=== PATIENT | male | born 1955 | race Caucasian/White ===

== ENCOUNTER → 2017-04-03 | Outpatient (CLI) | payer OTHER ==
[~2017-04-03] MED LIST: ATOR-24 PO; METO25TA56 PO
--- NOTE | 2017-04-03 11:55 | DIAGNOSTIC IMAGING REPORT ---
CHEST 2 VIEWS ROUTINE CLINICAL HISTORY: Bronchitis. COMPARISON STUDY: Chest CT July 20, 2014. FINDINGS: Lung volumes are normal. No pneumothorax or pleural effusion is noted. There is no consolidation to suggest pneumonia. Pulmonary vascularity is normal. Linear left basilar opacity is suggestive of atelectasis. The appearance of the chest is unchanged. IMPRESSION: No acute cardiopulmonary findings. Electronically signed by: Jesse Marley M.D. 04/03/2017 11:54 AM Dictated Date/Time: 04/03/2017 11:52 AM
== END | disposition home or self-care (01) ==
LOC: C.RAD1850 11:25
PROVIDERS: ATTEND Family Medicine
DX: J40 Bronchitis, not specified as acute or chronic (principal)

== ENCOUNTER 2021-05-23 10:25 | Inpatient (IN) ==
[2021-05-23] MEDS ORDERED: SODIUM CHLORIDE 0.9% 1000ML 1,000 ML IV ONE (11:29)
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
[2021-05-23 11:58] LABS: Basophils # (auto) 0.04 K/uL (0-0.2); Basophils % (auto) 0.6 %; Eosinophils # (auto) 0.11 K/uL (0-0.5); Eosinophils % (auto) 1.5 %; Hematocrit (blood only) 49.5 % (42-52); Hemoglobin 18.1 g/dL (14.0-18.0); Immature Granulocytes # (auto) 0.02 K/uL (0.00-0.02); Immature Granulocytes % (auto) 0.3 %; Lymphocytes # (auto) 1.93 K/uL (1.2-3.4); Lymphocytes % (auto) 27.2 %; Mean Corpuscular Hemoglobin 30.1 pg (25-34); Mean Corpuscular Hgb Conc 36.6 g/dL (32-36); Mean Corpuscular Volume 82.2 fL (80-100); Mean Platelet Volume 10.3 fL (7.4-10.4); Monocytes # (auto) 0.49 K/uL (0.11-0.59); Monocytes % (auto) 6.9 %; Neutrophils # (auto) 4.51 K/uL (1.4-6.5); Neutrophils % (auto) 63.5 %; Platelet Count 250 K/uL (130-400); RDW Coefficient of Variation 12.8 % (11.5-14.5); RDW Standard Deviation 37.9 fL (36.4-46.3); Red Blood Count 6.02 M/uL (4.7-6.1)
[2021-05-23 11:59] LABS: Appearance Urine Clear (Clear); Bilirubin Urine Negative (Negative); Blood Urine Negative (Negative); Color Urine Yellow; Glucose Urine UA Negative (Negative); Ketones Urine Negative (Negative); Leukocyte Esterase Urine Negative (Negative); Nitrite Urine Negative (Negative); Protein Urine Negative (Negative); Specific Gravity Urine 1.008 (1.000-1.030); Urobilinogen Urine Negative (Negative); pH Urine 8.5 (4.5-7.5)
--- NOTE | 2021-05-23 12:08 | XRay Report ---
XR chest 1V portable CLINICAL HISTORY: Atypical chest pain. COMPARISON STUDY: Chest CT July 20, 2014. Chest radiograph April 03, 2017. FINDINGS: Lung volumes are normal. Lungs are clear. There is no pneumothorax or pleural effusion. The re is borderline cardiomegaly. Mediastinal contours are normal. There is no evidence for pulmonary ed jd. IMPRESSION: No acute cardiopulmonary findings. ACT 112: Negative or not required by law. Electronically signed by: Jesse Marley M.D. 05/23/2021 12:06 PM
[2021-05-23 12:11] LABS: Partial Thromboplastin Ratio 0.9; Prothrombin Time 10.7 Seconds (9.0-12.0)
[2021-05-23 12:19] LABS: Troponin I < 0.03 ng/ml (0-0.04)
[2021-05-23 12:20] LABS: Alanine Aminotransferase 22 U/L (7-52); Albumin Globulin Ratio 2.1 (0.9-2); Albumin Level 4.7 gm/dl (3.4-5.0); Alkaline Phosphatase 67 U/L (34-104); Anion Gap 8 (3-11); Aspartate Aminotransferase 17 U/L (13-39); BUN Creatinine Ratio 12.5 (10-20); Bilirubin,Total 0.9 mg/dl (0.2-1.0); Blood Urea Nitrogen 11 mg/dl (6-23); Calcium 9.4 mg/dl (8.5-10.1); Carbon Dioxide 28 mmol/L (21-32); Chloride 105 mmol/L (98-107); Est GFR (African American) 104.5 ml/min; Est GFR (Non-African American) 90.1 ml/min; Globulin 2.2 gm/dl (2.5-4.0); Glucose 108 mg/dl (70-99(Fasting)); Lipase 22 U/L (11-82); Potassium 3.7 mmol/L (3.5-5.1); Sodium 141 mmol/L (136-145); Total Protein 6.9 gm/dl (6.0-8.3)
[2021-05-23 12:45] LABS: Lyme Ab IgG w/WB Rflx Negative (Negative); Lyme Ab IgM w/WB Rflx Negative (Negative)
--- NOTE | 2021-05-23 12:48 | CT Scan Report ---
CT head/brain wo con CLINICAL HISTORY: dizziness Technique: Contiguous axial CT images of the head were acquired from the base of the skull to the abby guerita without intravenous contrast administration. Images were viewed in brain, subdural and bone [facility] ws. Automated dose lowering techniques and/or adjustment according to patient size were utilized for this exam. Comparison: Comparison is made to PET/CT 12/18/2009 Findings: The ventricles, basal cisterns, and cerebral sulci are normal. There is no acute intracranial hemorrh age or evidence of acute territorial infarction. Neither mass effect, shift of the midline structures , nor abnormal extra-axial fluid collections are shown. Imaged portions of the paranasal sinuses and mastoid air cells are clear. The orbits appear normal. There are no acute fractures of the calvaria or scalp swelling. Impression: No acute intracranial hemorrhage, no evidence of acute territorial infarction or other acute intracra nial disease process. ACT 112: Negative or not required by law. Electronically signed by: Rogelio Bell M.D. 05/23/2021 12:47 PM
--- NOTE | 2021-05-23 13:34 | History & Physical Report ---
Date of Service May 23, 2021 Assessment & Plan (1) Dizziness: Plan: Ddx includes medication-induced bradycardia, sinus bradycardia (which we will determine by holding his beta-dionna), atypical anginal pain, BPPV or other labyrinth disease, or vestibular stroke. - Hold home beta-dionna - Monitor on telemetry: If his HR picks up with no episodes of bradycardia and dizziness resolves, we have our answer - If he remains bradycardic and dizzy, will consult EP for consideration of a pacemaker - I see no need to trend further troponins. Symptoms have been ongoing for nearly 4 days and troponin is undetectable. It was undetectable 24 hours after syncopal event. OR effectively ruled out. If anginal symptoms are a concern, will need stress test. - BPPV seems less likely, but he clearly describes vertigo this morning. PT consulted for Ann-Marie-Hallpike. - Vestibular strokes seems very unlikely. Could consider MRI brain if all other testing is negative. (2) Bradycardia: Plan: HR as low as 40s over last few days. - As above (3) Essential hypertension: Plan: BP has been higher over the last few days per his , but in response to stress. - Continue home amlodipine and lisinopril. Amlodipine just recently raised, so his BP may come down well with it. (4) Hyperlipidemia: Plan: Not on meds. - PCP f/u (5) History of B-cell lymphoma: Plan: In 2009. In remission. (6) DVT prophylaxis: Plan: SCDs - Avoid heparin on chance he may need pacemaker History of Present Illness Primary Care Provider: Xiang Rao MD 65yo M w/ hx of HTN who presents with an episode of syncope, bradycardia, and ongoing dizziness and vertigo. He reports that on 05/11, he was walking uphill with his when he passed out. He had enough time to say "Whoa, whoa, whoa" and reach out to his before losing consciousness. He awoke after about 15 seconds and had no post- syncope confusion. He reports some chest pressure at the time of this event, but it resolved quickly. He reports no other associated symptoms that he can recall: no palpitations, no shortness of breath, no nausea or vomiting. He felt well and actually walked home with his after that. He madhu to his PCP, and they ordered an echo and Holter monitor, but neither has arrived or been done yet. Around 05/19, he reports increasing dizziness and just feeling unwell. During these times of dizziness, he has also felt some chest pressure ("like a book on his chest") which resolves when the dizziness goes away. He has been checking his blood pressure, and the BP cuff noted high blood pressure (160/100), but a HR in the 40s. Other checks, he has found his HR in the 60s. This morning at around 3:00am, he had an episode of vertigo. He describes it as a clear vertiginous symptom with the room spinning. He notes that it was worse when he looked to the left. However, that sensation has passed, and at the time of admission, has no further symptoms at all. He notes some mild nasal congestion. Denies fever/chills/sweats, denies nausea or vomiting, denies loss of appetite, denies changes in urination or defecation. Allergies Allergy/AdvReac Type Severity Reaction Status Date / Time No Known Drug Allergies Allergy Verified 05/23/21 11:33 Home Medications Medication Instructions Recorded Confirmed Type amlodipine 10 mg tablet 10 mg PO HS #30 tab 05/22/21 05/23/21 Rx cholecalciferol (vitamin D3) 50 100 mcg PO QAM 05/23/21 05/23/21 History mcg (2,000 unit) capsule (Vitamin D3) lisinopril 40 mg tablet 40 mg PO QAM 05/23/21 05/23/21 History metoprolol succinate 100 mg 50 mg PO HS 05/23/21 05/23/21 History tablet,extended release 24 hr Past Med/Surg History Medical History (Updated 05/23/21 @ 13:26 by Jamaal Moise MD) Hyperlipidemia Hypertension Non-Hodgkin lymphoma 2009 ([place] RADIATION[place]MO) Surgical History Broken finger REPAIR SURGICAL History of colonoscopy History of esophagogastroduodenoscopy (EGD) History of herniorrhaphy History of vascular access device A-PORT INSERTION AND REMOVAL Hx of vasectomy Family History Father Family history of diabetes mellitus Mother Ovarian cancer Breast cancer Denies family history of Colon cancer Prostate cancer Myocardial infarction Social History Smoking Status: Never smoker Second Hand Exposure: Yes ( A CHILD); Hx Alcohol Use: Yes Alcohol type: beer Alcohol Intake Frequency: 2-3 x/Week Hx Substance Use: No Preferred Language: Kosovan Communication Ability: Effective Director Executive Communications Required: No Beliefs That Will Affect Care: None marital status: Current Living Situation: Spouse current occupational status: employed 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 Feels Safe at Home: Yes Childhood Exposure to Second-Hand Smoke: Yes Dental Care, Regularly: Yes Physical Activity Frequency: 1-2 Times per Week Seatbelt Use: always Sunscreen Use: Yes Assistive Devices: Glasses Review of Systems Review of Systems: All systems reviewed & are unremarkable except as noted in HPI & below Physical Exam Constitutional: WD/WN, vitals as above Eyes: EOM intact bilaterally; no conjunctival abnormality ENMT: external ear and nose normal, oropharynx normal Neck: trachea midline, no thyromegaly normal visual inspection Respiratory: normal respiratory effort, lungs clear to auscultation no respiratory distress Cardiovascular: RRR, no murmur, no edema Gastrointestinal (Abdomen): Inspection/Auscultation: abdomen normal to inspection; abdomen not distended Musculoskeletal: no cyanosis or clubbing, extremities motor strength 5/5 Skin: no rashes, warm and dry Neurologic: moves all extremities and awake Psychiatric: Orientation: alert, oriented to person and cooperative Results & Data Results & Data ([facility]) Vital Signs (Past 12 Hours) Vital Signs Temp Pulse Pulse Resp BP BP Pulse Ox 05/23/21 11:46 71 18 96 05/23/21 10:54 66 18 166/107 H 96 05/23/21 10:33 36.8 C 74 16 173/106 H 95 Code Status & VTE Plan VTE Prophylaxis Plan VTE Prophylaxis will be ordered: Yes PG Care Time/CCT Total # of Minutes Spent Total Time Spent with Patient: Total time spent is greater than 50% in coordination of care (as documented) at patient's floor/unit and/or counseling patient: Coding Level of Care Code 92561 Initial Inpt Care Lvl 3 Diagnoses Dizziness R42 Bradycardia R00.1 Essential hypertension I10 Hyperlipidemia E78.5 History of B-cell lymphoma Z85.72 DVT prophylaxis Z29.9
[2021-05-23] MEDS ORDERED: ONDANSETRON INJ 2 MG/ML 2 ML VIAL IV PRN (15:51)
[2021-05-23] MEDS ORDERED: ACETAMINOPHEN 325 MG TAB PO PRN (15:51)
[2021-05-23] MEDS: amLODIPine BESYLATE 5 MG TAB PO SCH (20:35)
--- NOTE | 2021-05-23 22:33 | Electrocardiogram Report ---
Test Reason : Blood Pressure : / mmHG Vent. Rate : 068 BPM Atrial Rate : 068 BPM P-R Int : 168 ms QRS Dur : 146 ms QT Int : 424 ms P-R-T Axes : 039 022 017 degrees QTc Int : 450 ms Normal sinus rhythm Right bundle branch block Abnormal ECG When compared with ECG of 10-MAR-2011 08:13, T wave inversion now evident in Anterior leads Confirmed by Donell Arevalo ([id number]) on 05/23/2021 10:33:35 PM Referred By: REFERRED SELF Confirmed By:Donell Arevalo
--- NOTE | 2021-05-24 02:46 | Communication Note ---
Date of Service: May 24, 2021 Informed by patient's RN that around 0140, had a ~5 second run of what appeared to be 3rd degree AVB. He was awoken at this time and reported feeling dizzy, which spontaneously resolved thereafter. BP taken shortly thereafter at 138/92. In speaking with telemetry and reviewing his trends, does appear to be flipping in between sinus rhythm in the 60-70s and what appears to be 2nd degree AVB -- usually for just a few seconds -- since later last evening. I reviewed the patient's history and noted that a single episode of this was recorded while he was in the ER. Personally went to see the patient. Asymptomatic, feeling well, perfusing well. His H&P was reviewed and noted that he presented for dizziness. Given that he reported to RN that he felt dizzy during the aforementioned findings on telemetry, concerned this may be the precipitating etiology. Will obtain ECG and labs (BMP/Mg/Phos) and replete if indicated. Pacer pads readily available if needed and in frequent communication with his RN. As patient was reported to feeling dizzy during the aforementioned event, and with the concerns of persistent but flipping conduction events, will place cardiology consultation with [facility] [place] to aid with ?need for pacemaker Resident Activity Tracking Resident Involvement: Resident Care Provided Care Provided: Adult Hospital Medicine
[2021-05-24 03:16] LABS: Hemoglobin 16.9 g/dL (14.0-18.0); Mean Corpuscular Hemoglobin 29.8 pg (25-34); Mean Corpuscular Volume 82.9 fL (80-100); Mean Platelet Volume 10.1 fL (7.4-10.4); Platelet Count 228 K/uL (130-400); RDW Coefficient of Variation 12.7 % (11.5-14.5); RDW Standard Deviation 37.9 fL (36.4-46.3); Red Blood Count 5.67 M/uL (4.7-6.1); White Blood Count 8.75 K/uL (4.8-10.8)
[2021-05-24 03:36] LABS: BUN Creatinine Ratio 10.8 (10-20); Calcium 8.6 mg/dl (8.5-10.1); Creatinine Clr Calc Pharmacy 92.7 ml/min; Est GFR (African American) 99.5 ml/min; Est GFR (Non-African American) 85.8 ml/min; Magnesium 2.2 mg/dl (1.7-2.4); Phosphorus 3.7 mg/dl (2.5-4.9); Potassium 3.5 mmol/L (3.5-5.1)
[2021-05-24] MEDS ORDERED: POTASSIUM CHLORIDE CRTAB 20 MEQ TABCR PO STA (05:33)
[2021-05-24] MEDS: lisinopril 40 MG TAB PO SCH (08:46)
--- NOTE | 2021-05-24 10:13 | Cardiology Consultation ---
Date of Consultation May 24, 2021 Assessment & Plan (1) Second-degree heart block: (2) Bradycardia: (3) Dizziness: (4) Syncope: 1. High-degree AV block: The patient has evidence of underlying conduction disease with baseline right bundle branch block. However, the NE interval was normal at baseline. Since he has been on telemetry he has demonstrated both Mobitz 2 conduction and brief periods of complete heart block. This likely represents infra-Hisian conduction disease and in the setting of symptoms is a good indication for permanent pacing. While metoprolol may have made his symptoms more acute, this is not likely the sole etiology of his conduction disease and his conduction disease is not likely to resolve with discontinuation of metoprolol. I believe his syncope and symptoms are related to brief periods of asystole related to his heart block. I recommended a permanent pacemaker. I discussed the procedure and the attendant risks with the patient and his . Will plan on proceeding when the opportunity becomes available, tentatively Wednesday. The etiology of his heart block is likely chronic degeneration. He does not appear to have Lyme disease. As noted above I do not believe medications are responsible. There is the possibility of an infiltrative process such as amyloidosis or sarcoidosis, but with normal LV function and normal appearing heart I think this is unlikely. History of Present Illness Reason for Consultation: Dizziness, heart block Requesting Physician: [place] Attending Physician: Etienne Gee MD History of Present Illness The patient is a 65-year-old gentleman without a known history of cardiac d isease who was admitted to the hospital for symptoms of Episodic dizziness. It seems that the patient's symptoms initially started nearly 2 weeks ago when he suffered a syncopal episode. The patient was active at the time. He reports walking and having a very brief prodrome prior to losing consciousness and postural tone. He regained consciousness within a few seconds, and rested for approximately 10 minutes prior to resuming his activity. His was present for that event. He did not feel poorly afterwards but did have occasional episodes of dizziness since that time. These episodes tend to occur when he is active. They are very transient in nature. They have not resulted in any additional episodes of syncope. The patient feels that some of these episodes may be precipitated by changing positions such as rolling over in bed. Ten these episodes appear to have involved a sense of the room spinning as well. He does not have associated symptoms such as nausea or abdominal complaints. No diaphoresis. He was not described as looking pale after his episode of syncope. He has not had any sense of palpitations. He cannot recall any other episodes of syncope. Last evening on telemetry he had a brief episode of third-degree heart block. Apparently he was sleeping at that time. He did not recall any specific symptoms. Allergies Allergy/AdvReac Type Severity Reaction Status Date / Time No Known Drug Allergies Allergy Verified 05/23/21 11:33 Home Medications Medication Instructions Recorded Confirmed Type amlodipine 10 mg tablet 10 mg PO HS #30 tab 05/22/21 05/23/21 Rx cholecalciferol (vitamin D3) 50 100 mcg PO QAM 05/23/21 05/23/21 History mcg (2,000 unit) capsule (Vitamin D3) lisinopril 40 mg tablet 40 mg PO QAM 05/23/21 05/23/21 History metoprolol succinate 100 mg 50 mg PO HS 05/23/21 05/23/21 History tablet,extended release 24 hr Patient History Medical History (Updated 05/24/21 @ 10:17 by Atilio Ni MD) Hyperlipidemia Hypertension Non-Hodgkin [place] 2009 ([place]) Surgical History Broken finger REPAIR SURGICAL History of colonoscopy History of esophagogastroduodenoscopy (EGD) History of herniorrhaphy History of vascular access device A-PORT INSERTION AND REMOVAL Hx of vasectomy Family History Father Family history of diabetes mellitus Mother Ovarian cancer Breast cancer Denies family history of Colon cancer Prostate cancer Myocardial infarction Social History Smoking Status: Never smoker Second Hand Exposure: No; Hx Alcohol Use: No Hx Substance Use: No Preferred Language: Anguill[place] Communication Ability: Effective Grading Machine Feeder Required: No Beliefs That Will Affect Care: Pentecostalism marital status: Current Living Situation: Spouse Current Living Situation Comment: [facility] Foley current occupational status: employed 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 The patient did not report any recent fevers or chills. No coughing. No abdominal complaints. No lower extremity edema. He has otherwise been feeling well. Physical Exam Physical Exam: The patient is alert and oriented. Mood and affect appeared normal. He answered all questions appropriately. HEENT: Pupils are equal and reactive to light and accommodation. Extraocular movements are intact. The sclerae are anicteric. Neuro: Cranial nerves intact Neck: Patient's neck is supple. He has palpable carotid pulses bilaterally without bruits on auscultation. There is no evidence of jugular venous distent ion. The thyroid is not enlarged. Chest: Well-healed surgical scar in the left upper pectoral area. Lungs: Clear to auscultation bilaterally. He has good air movement without use of accessory muscles. No rales wheezes or rhonchi. Cardiac: Heart demonstrates an irregular rate and rhythm. Normal S1 and S2. No murmurs on examination. Pulses: The patient has palpable radial pulses bilaterally that are equal in intensity Extremities: There was no evidence of hypoperfusion. There is no cyanosis or clubbing. There is no edema. Skin: I did not appreciate any rashes on examination today. Results & Data ([facility]) Vital Signs (Past 12 Hours) Vital Signs Temp Pulse Pulse Resp BP Pulse Ox 05/24/21 07:39 73 05/24/21 05:37 36.9 C 73 16 158/96 H 94 05/24/21 03:01 37 C 58 L 18 147/80 H 94 05/24/21 01:47 37.0 C 56 L 20 138/92 95 05/23/21 23:02 36.9 C 54 L 16 152/79 H 94 05/23/21 22:22 55 L Laboratory Results Abnormal Lab Results 05/23/21 05/23/21 05/23/21 11:37 11:37 11:37 WBC 7.10 RBC 6.02 Hgb 18.1 H Hct 49.5 MCV 82.2 MCH 30.1 MCHC 36.6 H RDW Std Deviation 37.9 RDW Coeff of Alfredo 12.8 Plt Count 250 MPV 10.3 Immature Gran % (Auto) 0.3 Neut % (Auto) 63.5 Lymph % (Auto) 27.2 [place] % (Auto) 6.9 Eos % (Auto) 1.5 Baso % (Auto) 0.6 Neut # (Auto) 4.51 Lymph # (Auto) 1.93 [place] # (Auto) 0.49 Eos # (Auto) 0.11 Baso # (Auto) 0.04 Immature Gran # (Auto) 0.02 PT 10.7 INR 1.0 APTT 25.0 PTT Ratio 0.9 Sodium 141 Potassium 3.7 Chloride 105 Carbon Dioxide 28 Anion Gap 8 BUN 11 Creatinine 0.88 Est Cr Clr Drug Dosing 98.0 Est GFR ( Amer) 104.5 Est GFR (Non-Af Amer) 90.1 BUN/Creatinine Ratio 12.5 Glucose 108 H Calcium 9.4 Phosphorus Magnesium Total Bilirubin 0.9 AST 17 ALT 22 Alkaline Phosphatase 67 Troponin I < 0.03 Total Protein 6.9 Albumin 4.7 Globulin 2.2 L Albumin/Globulin Ratio 2.1 H Lipase 22 TSH Urine Color Urine Appearance Urine pH Ur Specific [place] Urine Protein Urine Glucose (UA) Urine Ketones Urine Blood Urine Nitrite Urine Bilirubin Urine Urobilinogen Ur Leukocyte Esterase Lyme Disease IgG Ab Lyme Disease IgM Ab SARS-CoV-2, RNA, NAAT 05/23/21 05/23/21 05/23/21 11:37 11:37 11:37 WBC RBC Hgb Hct MCV MCH MCHC RDW Std Deviation RDW Coeff of Alfredo Plt Count MPV Immature Gran % (Auto) Neut % (Auto) Lymph % (Auto) [place] % (Auto) Eos % (Auto) Baso % (Auto) Neut # (Auto) Lymph # (Auto) [place] # (Auto) Eos # (Auto) Baso # (Auto) Immature Gran # (Auto) PT INR APTT PTT Ratio Sodium Potassium Chloride Carbon Dioxide Anion Gap BUN Creatinine Est Cr Clr Drug Dosing Est GFR ( Amer) Est GFR (Non-Af Amer) BUN/Creatinine Ratio Glucose Calcium Phosphorus Magnesium Total Bilirubin AST ALT Alkaline Phosphatase Troponin I Total Protein Albumin Globulin Albumin/Globulin Ratio Lipase TSH 2.069 Urine Color Urine Appearance Urine pH Ur Specific [place] Urine Protein Urine Glucose (UA) Urine Ketones Urine Blood Urine Nitrite Urine Bilirubin Urine Urobilinogen Ur Leukocyte Esterase Lyme Disease IgG Ab Negative Lyme Disease IgM Ab Negative SARS-CoV-2, RNA, NAAT NEGATIVE 05/23/21 05/24/21 05/24/21 11:40 02:54 02:54 WBC 8.75 RBC 5.67 Hgb 16.9 Hct 47.0 MCV 82.9 MCH 29.8 MCHC 36.0 RDW Std Deviation 37.9 RDW Coeff of Alfredo 12.7 Plt Count 228 MPV 10.1 Immature Gran % (Auto) Neut % (Auto) Lymph % (Auto) [place] % (Auto) Eos % (Auto) Baso % (Auto) Neut # (Auto) Lymph # (Auto) [place] # (Auto) Eos # (Auto) Baso # (Auto) Immature Gran # (Auto) PT INR APTT PTT Ratio Sodium 139 Potassium 3.5 Chloride 106 Carbon Dioxide 28 Anion Gap 5 BUN 10 Creatinine 0.93 Est Cr Clr Drug Dosing 92.7 Est GFR ( Amer) 99.5 Est GFR (Non-Af Amer) 85.8 BUN/Creatinine Ratio 10.8 Glucose 104 H Calcium 8.6 Phosphorus 3.7 Magnesium 2.2 Total Bilirubin AST ALT Alkaline Phosphatase Troponin I Total Protein Albumin Globulin Albumin/Globulin Ratio Lipase TSH Urine Color Yellow Urine Appearance Clear Urine pH 8.5 H Ur Specific [place] 1.008 Urine Protein Negative Urine Glucose (UA) Negative Urine Ketones Negative Urine Blood Negative Urine Nitrite Negative Urine Bilirubin Negative Urine Urobilinogen Negative Ur Leukocyte Esterase Negative Lyme Disease IgG Ab Lyme Disease IgM Ab SARS-CoV-2, RNA, NAAT Diagnostic Findings Chest x-ray obtained the time admission not reveal acute cardiopulmonary process. Head CT did not demonstrate any acute intracranial process echocardiogram performed today revealed preserved LV systolic function without regional wall motion abnormalities. Stage I diastolic dysfunction. No significant valvular heart disease. ECG Additional Comments: EKG obtained the time admission revealed normal sinus rhythm with right bundle branch block PG Care Time/CCT Total # of Minutes Spent Total Time Spent with Patient: Total time spent is greater than 50% in coordination of care (as documented) at patient's floor/unit and/or counseling patient: Coding Level of Care Code 81714 Initial Inpt Care Lvl 3 Diagnoses Second-degree heart block I44.1 Bradycardia R00.1 Dizziness R42 Syncope R55
--- NOTE | 2021-05-24 10:35 | XCELERA ---
[id number]
--- NOTE | 2021-05-24 12:34 | Electrocardiogram Report ---
Test Reason : Blood Pressure : / mmHG Vent. Rate : 072 BPM Atrial Rate : 072 BPM P-R Int : 172 ms QRS Dur : 152 ms QT Int : 442 ms P-R-T Axes : 057 040 046 degrees QTc Int : 483 ms Normal sinus rhythm Right bundle branch block Abnormal ECG When compared with ECG of 23-MAY-2021 10:50, No significant change was found Confirmed by Atilio Ni ([id number]) on 05/24/2021 12:34:01 PM Referred By: REFERRED SELF Confirmed By:Jass Ni
--- NOTE | 2021-05-24 12:34 | Electrocardiogram Report ---
Test Reason : Blood Pressure : / mmHG Vent. Rate : 043 BPM Atrial Rate : 079 BPM P-R Int : 166 ms QRS Dur : 150 ms QT Int : 456 ms P-R-T Axes : 051 028 038 degrees QTc Int : 385 ms Sinus rhythm with 2nd degree A-V block (Mobitz II) with 2:1 A-V conduction Right bundle branch block Cannot rule out Inferior infarct , age undetermined Abnormal ECG When compared with ECG of 24-MAY-2021 01:47, (unconfirmed) Sinus rhythm is now with 2nd degree A-V block (Mobitz II) Vent. rate has decreased BY 29 BPM QT has shortened Confirmed by Atilio Ni ([id number]) on 05/24/2021 12:34:36 PM Referred By: REFERRED SELF Confirmed By:Jass Ni
--- NOTE | 2021-05-24 13:49 | Hospitalist Progress Note ---
Date of Service May 24, 2021 Assessment & Plan (1) Second-degree heart block: Plan: Second-degree heart block with normal MN observed on telemetry Cardiology consulted, syncope and symptoms are likely related to intermittent heart block with evidence of Mobitz 2 on monitor Patient has been recommended for permanent pacemaker Anticipate pacer placement on Wednesday Pacer pads to bedside, continue to monitor on telemetry. No additional vestibular work-up indicated at this time. Continue to hold beta-dionna (2) Dizziness: Plan: Initial Ddx includes medication-induced bradycardia, sinus bradycardia (which we will determine by holding his beta-dionna), atypical anginal pain, BPPV or other labyrinth disease, or vestibular stroke. - Hold home beta-dionna Due to cardiac etiology as managed above (3) Bradycardia: Plan: HR as low as 40s over last few days. - As above (4) Essential hypertension: Plan: BP has been higher over the last few days per his , but in response to stress. - Continue home amlodipine and lisinopril. May add hydralazine as needed if needed, will currently held due to bradycardia/heart block (5) Hyperlipidemia: Plan: Not on meds. - PCP f/u (6) History of B-cell lymphoma: Plan: In 2009. In remission. (7) DVT prophylaxis: Plan: SCDs -on hold pending pacer placement Admission and Anticipated Discharge Date Admission Date: May 23, 2021 Subjective Patient seen at the bedside this morning. He reports he was awoken 2:58 AM and told that he had a slow heartbeat on the monitor, patient reports he did experience lightheadedness/dizziness at that time. Had another episode at around 5 AM. Was noted to have secondthird-degree heart block on telemetry. He reports these episodes resolved fairly quickly, and the time bedside assessment he feels normal. Denies chest pain, chest pressure, lightheadedness, dizziness, nausea, vomiting, diarrhea, syncope, presyncope, difficulty breathin g, shortness of breath, palpitations at time of bedside assessment. Overall between episodes he feels normal. No fever/chills/sweats. Has seen cardiology this morning, is anticipating pacer placement on Wednesday. Review of Systems Review of Systems: All systems reviewed & are unremarkable except as noted in Subjective Physical Exam Physical Exam: General: A&Ox3. NAD. Cooperative. HEENT: Atraumatic, normocephalic. Patient and hearing grossly intact. Pulm: CTAB A&P. -wheezes, -rales, -rhonchi. Symmetrical chest rise. No increase in work of breathing. No respiratory distress. Cardiac: RRR, -mrg. Radial pulses intact and symmetrical. Abdominal: Nontender, nondistended, soft. BS present. Results & Data Results & [facility]) Vital Signs (Past 12 Hours) Vital Signs Temp Pulse Pulse Resp BP Pulse Ox 05/24/21 07:39 73 05/24/21 05:37 36.9 C 73 16 158/96 H 94 05/24/21 03:01 37 C 58 L 18 147/80 H 94 05/24/21 01:47 37.0 C 56 L 20 138/92 95 PG Care Time/CCT Total # of Minutes Spent Total Time Spent with Patient: Total time spent is greater than 50% in coordination of care (as documented) at patient's floor/unit and/or counseling patient: Coding Level of Care Code 37230 Subseq Hosp Care Lvl 2 Diagnoses Dizziness R42 Bradycardia R00.1 Essential hypertension I10 Hyperlipidemia E78.5 History of B-cell lymphoma Z85.72 DVT prophylaxis Z29.9 Second-degree heart block I44.1
[2021-05-24] MEDS: amLODIPine BESYLATE 5 MG TAB PO SCH (20:02)
[2021-05-25 06:46] LABS: BUN Creatinine Ratio 15.4 (10-20); Blood Urea Nitrogen 14 mg/dl (6-23); Calcium 9.3 mg/dl (8.5-10.1); Carbon Dioxide 30 mmol/L (21-32); Chloride 104 mmol/L (98-107); Creatinine Clr Calc Pharmacy 94.7 ml/min; Est GFR (African American) 102.1 ml/min; Est GFR (Non-African American) 88.1 ml/min; Glucose 108 mg/dl (70-99(Fasting))
[2021-05-25] MEDS: lisinopril 40 MG TAB PO SCH (07:25)
[2021-05-25 07:27] LABS: Potassium 3.5 mmol/L (3.5-5.1)
--- NOTE | 2021-05-25 11:36 | Cardiology Progress Note ---
Date of Service May 25, 2021 Assessment & Plan (1) Second-degree heart block: (2) Bradycardia: (3) Dizziness: (4) Syncope: Plan: 1. High-degree AV block: Improved. This morning he was conducting one-to-one from the atrium to the ventricle. No additional pauses or episodes of complete heart block. Perhaps there has been some improvement with discontinuation of beta-blockade. However, I still think he has significant infra-Hisian disease and there will continue to be unreliable AV conduction. Given his symptoms and evidence of heart block we will plan on proceeding with the pacemaker tomorrow. Admission and Anticipated Discharge Date Admission Date: May 23, 2021 Subjective This morning patient claims to be feeling well. He was able ambulate to the bathroom and back without significant difficulty. He has not had any recurrent symptoms of dizziness or presyncope. Review of Systems Review of Systems: Per HPI Physical Exam Physical Exam: The patient is alert and oriented. Mood and affect appeared normal. He answered all questions appropriately. HEENT: Pupils are equal and reactive to light and accommodation. Extraocular movements are intact. The sclerae are anicteric. Neuro: Cranial nerves intact Chest: Well-healed surgical scar in the left upper pectoral area. Lungs: Clear to auscultation bilaterally. He has good air movement without use of accessory muscles. No rales wheezes or rhonchi. Cardiac: Heart demonstrates an irregular rate and rhythm. Normal S1 and S2. No murmurs on examination. Skin: I did not appreciate any rashes on examination today. Results & Data ([facility]) Vital Signs (Past 12 Hours) Vital Signs Temp Pulse Resp BP Pulse Ox 05/25/21 10:56 37.1 C 97 H 19 165/96 H 93 05/25/21 06:26 36.5 C 71 18 166/97 H 96 05/25/21 03:31 36.5 C 75 18 136/81 96 Laboratory Results Abnormal Lab Results 05/25/21 05/25/21 05:42 06:51 Sodium 140 Potassium 3.5 Chloride 104 Carbon Dioxide 30 Anion Gap TNP BUN 14 Creatinine 0.91 Est Cr Clr Drug Dosing 94.7 Est GFR ( Amer) 102.1 Est GFR (Non-Af Amer) 88.1 BUN/Creatinine Ratio 15.4 Glucose 108 H Calcium 9.3 PG Care Time/CCT Total # of Minutes Spent Total Time Spent with Patient: Total time spent is greater than 50% in coordination of care (as documented) at patient's floor/unit and/or counseling patient: Coding Level of Care Code 61138 Subseq Hosp Care Lvl 2 Diagnoses Second-degree heart block I44.1 Bradycardia R00.1 Dizziness R42 Syncope R55
--- NOTE | 2021-05-25 12:45 | Hospitalist Progress Note ---
Date of Service May 25, 2021 Assessment & Plan (1) Second-degree heart block: Plan: Second-degree heart block with normal OR observed on telemetry Cardiology consulted, syncope and symptoms are likely related to intermittent heart block with evidence of Mobitz 2 and pauses on monitor Patient has been recommended for permanent pacemaker Anticipate pacer placement on Wednesday Pacer pads to bedside, continue to monitor on telemetry. No additional vestibular work-up indicated at this time. Continue to hold beta-dionna N.p.o. at midnight (2) Dizziness: Plan: Initial Ddx includes medication-induced bradycardia, sinus bradycardia (which we will determine by holding his beta-dionna), atypical anginal pain, BPPV or other labyrinth disease, or vestibular stroke. - Hold home beta-dionna Due to cardiac etiology as managed above May resume beta-dionna once pacer in place for hypertension management (3) Bradycardia: Plan: HR as low as 40s over last few days. - As above (4) Essential hypertension: Plan: BP has been higher over the last few days per his , but in response to stress. - Continue home amlodipine and lisinopril. May add hydralazine as needed if needed, will currently held due to bradycardia/heart block (5) Hyperlipidemia: Plan: Not on meds. - PCP f/u (6) History of B-cell lymphoma: Plan: In 2009. In remission. (7) DVT prophylaxis: Plan: SCDs -on hold pending pacer placement Admission and Anticipated Discharge Date Admission Date: May 23, 2021 Subjective Seen at bedside this morning. Anticipating pacer placement tomorrow, no symptoms overnight. No third-degree block or pauses on telemetry overnight. No chest pain, chest pressure, lightheadedness, dizziness, shortness of breath, difficulty breathing at time of bedside assessment. Patient feels in his normal state of health. Review of Systems Review of Systems: All systems reviewed & are unremarkable except as noted in Subjective Physical Exam Physical Exam: General: A&Ox3. NAD. Cooperative. HEENT: Atraumatic, normocephalic. Patient and hearing grossly intact. Pulm: CTAB A&P. -wheezes, -rales, -rhonchi. Symmetrical chest rise. No increase in work of breathing. No respiratory distress. Cardiac: RRR, -mrg. Radial pulses intact and symmetrical. Abdominal: Nontender, nondistended, soft. BS present. Results & Data Results & Data ([facility]) Vital Signs (Past 12 Hours) Vital Signs Temp Pulse Resp BP Pulse Ox 05/25/21 10:56 37.1 C 97 H 19 165/96 H 93 05/25/21 06:26 36.5 C 71 18 166/97 H 96 05/25/21 03:31 36.5 C 75 18 136/81 96 PG Care Time/CCT Total # of Minutes Spent Total Time Spent with Patient: Total time spent is greater than 50% in coordination of care (as documented) at patient's floor/unit and/or counseling patient: Coding Level of Care Code 57733 Subseq Hosp Care Lvl 2 Diagnoses Second-degree heart block I44.1 Dizziness R42 Bradycardia R00.1 Essential hypertension I10 Hyperlipidemia E78.5 History of B-cell lymphoma Z85.72 DVT prophylaxis Z29.9
[2021-05-25] MEDS: amLODIPine BESYLATE 5 MG TAB PO SCH (20:40)
[2021-05-26 05:49] LABS: Basophils # (auto) 0.05 K/uL (0-0.2); Basophils % (auto) 0.6 %; Eosinophils % (auto) 3.3 %; Hematocrit (blood only) 50.1 % (42-52); Hemoglobin 17.8 g/dL (14.0-18.0); Immature Granulocytes # (auto) 0.02 K/uL (0.00-0.02); Immature Granulocytes % (auto) 0.2 %; Lymphocytes # (auto) 2.64 K/uL (1.2-3.4); Lymphocytes % (auto) 29.1 %; Mean Corpuscular Hemoglobin 29.8 pg (25-34); Mean Corpuscular Hgb Conc 35.5 g/dL (32-36); Mean Corpuscular Volume 83.8 fL (80-100); Mean Platelet Volume 10.2 fL (7.4-10.4); Monocytes # (auto) 0.68 K/uL (0.11-0.59); Monocytes % (auto) 7.5 %; Neutrophils # (auto) 5.37 K/uL (1.4-6.5); Neutrophils % (auto) 59.3 %; Platelet Count 218 K/uL (130-400); RDW Coefficient of Variation 12.8 % (11.5-14.5); RDW Standard Deviation 38.2 fL (36.4-46.3); Red Blood Count 5.98 M/uL (4.7-6.1); White Blood Count 9.06 K/uL (4.8-10.8)
[2021-05-26 06:35] LABS: BUN Creatinine Ratio 17.1 (10-20); Creatinine Clr Calc Pharmacy 113.4 ml/min; Est GFR (Non-African American) 95.7 ml/min; Potassium 3.6 mmol/L (3.5-5.1)
[2021-05-26] MEDS ORDERED: hydrALAZINE HCL 20 MG/ML VIAL IV PRN (11:17)
--- NOTE | 2021-05-26 11:17 | Hospitalist Progress Note ---
Date of Service May 26, 2021 Assessment & Plan (1) Second-degree heart block: Plan: Second-degree heart block with normal MN observed on telemetry Cardiology consulted, syncope and symptoms are likely related to intermittent heart block with evidence of Mobitz 2 and pauses on monitor Patient has been recommended for permanent pacemaker Anticipate pacer placement on Wednesday Pacer pads to bedside, continue to monitor on telemetry. No additional vestibular work-up indicated at this time. Continue to hold beta-dionna, may resume post pacer placement Lisinopril temporarily held for procedure, may resume post procedure Anticipate placer placement approximately noon today. Will observe overnight on telemetry, if doing well likely stable for discharge tomorrow Hypertensive in the morning preprocedure, no hypertensive symptoms at bedside. Both metoprolol and lisinopril have been held metoprolol for heart block and lisinopril for anesthesia interaction preprocedure. Amlodipine has been continued. Hydralazine order placed for morning, once pacer placed resume both lisinopril and metoprolol for BP control. (2) Dizziness: Plan: Initial Ddx includes medication-induced bradycardia, sinus bradycardia (which we will determine by holding his beta-dionna), atypical anginal pain, BPPV or other labyrinth disease, or vestibular stroke. - Hold home beta-dionna Due to cardiac etiology as managed above May resume beta-dionna once pacer in place for hypertension management (3) Bradycardia: Plan: HR as low as 40s over last few days. - As above (4) Essential hypertension: Plan: BP has been higher over the last few days per his , but in response to stress. - Continue home amlodipine and lisinopril. May add hydralazine as needed if needed, will currently held due to bradycardia/heart block (5) Hyperlipidemia: Plan: Not on meds. - PCP f/u (6) History of B-cell lymphoma: Plan: In 2009. In remission. (7) DVT prophylaxis: Plan: SCDs -on hold pending pacer placement Admission and Anticipated Discharge Date Admission Date: May 23, 2021 Subjective Seen at bedside this morning. No symptoms overnight. No third-degree block overnight. No chest pain, chest pressure, shortness of breath, difficulty breathing, lightheadedness, dizziness. Has been n.p.o. since midnight. Anticipate pacer placement today, scheduled for 12:00. No acute questions or concerns at time of visit. Lisinopril was temporarily held, may resume post procedure. Review of Systems Review of Systems: All systems reviewed & are unremarkable except as noted in Subjective Physical Exam Physical Exam: General: A&Ox3. NAD. Cooperative. HEENT: Atraumatic, normocephalic. Patient and hearing grossly intact. Pulm: CTAB A&P. -wheezes, -rales, -rhonchi. Symmetrical chest rise. No increase in work of breathing. No respiratory distress. Cardiac: RRR, -mrg. Radial pulses intact and symmetrical. Abdominal: Nontender, nondistended, soft. BS present. Results & Data Results & Data ([facility]) Vital Signs (Past 12 Hours) Vital Signs Temp Pulse Resp BP BP Pulse Ox 05/26/21 10:54 37.0 C 90 18 176/110 H 95 05/26/21 07:00 36.9 C 82 18 172/101 H 175/119 H 96 05/26/21 03:31 36.8 C 74 18 158/96 H 97 PG Care Time/CCT Total # of Minutes Spent Total Time Spent with Patient: Total time spent is greater than 50% in coordination of care (as documented) at patient's floor/unit and/or counseling patient: Coding Level of Care Code 29046 Subseq Hosp Care Lvl 2 Diagnoses Second-degree heart block I44.1 Dizziness R42 Bradycardia R00.1 Essential hypertension I10 Hyperlipidemia E78.5 History of B-cell lymphoma Z85.72 DVT prophylaxis Z29.9
[2021-05-26] MEDS ORDERED: BUPIVACAINE 0.25% 30 ML VIAL ONE (11:23)
[2021-05-26] MEDS ORDERED: VANCOMYCIN HCL 1000MG/20ML VIAL ONE (11:23)
[2021-05-26] MEDS ORDERED: LIDOCAINE 1% LOCAL 20 ML VIAL ONE (11:23)
[2021-05-26] MEDS ORDERED: WATER, STERILE FOR INJ 10 ML VIAL ONE (11:23)
--- NOTE | 2021-05-26 11:41 | Pre Anesthesia Assessment ---
Date of Service May 26, 2021 Pre Sedation Assessment Vital Signs Temp Pulse Resp BP BP Pulse Ox 05/26/21 11:20 59 L 15 198/103 H 97 05/26/21 10:54 37.0 C 90 18 176/110 H 95 05/26/21 07:00 36.9 C 82 18 172/101 H 175/119 H 96 05/26/21 03:31 36.8 C 74 18 158/96 H 97 05/25/21 22:37 36.9 C 81 20 162/104 H 95 05/25/21 19:26 37.4 C 90 18 167/90 H 95 05/25/21 15:40 36.9 C 103 H 18 146/94 H 94 Cardiovascular + regular rhythm Respiratory + respiratory effort normal Pre-Sedation Airway Assessment Smoking Status: Never smoker Hx Sleep Apnea: No Hx Difficult Intubation: No Short, Thick Neck: Yes Thyromental Distance: > or= 3.5 Finger Breadths Oral Cavity: + WNL Mallampati Class: III ASA: ASA3 NPO Status Date of Last Intake of Fluids: 05/25/21 Date of Last Intake of Solid Food: 05/25/21 Procedure Planning Contraindications for Sedation: none Current Medications Reviewed: Yes Notes The planned sedation has been discussed with the patient. Informed Consent was obtained. I have identified the patient, determined the appropriateness of sedation and have assessed the patient immediately prior to the procedure. All medicine(s) and interventions are by my order.
[2021-05-26] MEDS ORDERED: ceFAZolin 330 MG/ML 1 GM VIAL ONE (11:42)
[2021-05-26] MEDS ORDERED: MIDAZOLAM HCL 5 MG/ML 1 ML VIAL ONE (11:42)
[2021-05-26] MEDS ORDERED: fentaNYL citrate 100 MCG/2 ML VIAL ONE (11:42)
[2021-05-26] MEDS ORDERED: oxyCODONE HCL IR 5 MG TAB (IMMEDIATE RELEASE) PO PRN (13:14)
--- NOTE | 2021-05-26 13:14 | Post Anesthesia Assessment ---
Date of Service May 26, 2021 Post Sedation Assessment Vital Signs Temp Pulse Resp BP BP Pulse Ox 05/26/21 11:20 59 L 15 198/103 H 97 05/26/21 10:54 37.0 C 90 18 176/110 H 95 05/26/21 07:00 36.9 C 82 18 172/101 H 175/119 H 96 05/26/21 03:31 36.8 C 74 18 158/96 H 97 05/25/21 22:37 36.9 C 81 20 162/104 H 95 05/25/21 19:26 37.4 C 90 18 167/90 H 95 05/25/21 15:40 36.9 C 103 H 18 146/94 H 94 Recovery Score Activity: Moves 4 extremities Respiration: Deep Breath/Cough Circulation: +/-20% PreAnes Value Consciousness: Fully Awake Oxygen Saturation: > 92% On Room Air Discharge Sedation Level of Care: Fast Track Phase II Post Sedation Plan On clinical assessment, the patient appears to have tolerated the sedation without complications. Patient is recovering as anticipated. Patient will continue to be monitored by nursing and may be discharged when sedation discharge criteria are met per below protocol. Upon Completions of procedure up to 15 minutes continue every 5 minute vital signs and the P.A.R. score; then discharge to a Phase I or Fast Track to Phase II per the following guidelines: * Discharge Patient to appropriate Phase II area if PAR is 8 or greater or return to pre- procedure baseline. The post - procedure orders will be as directed. * If PAR score is less than 8 or not return to pre-procedure baseline then patient will follow Phase I monitoring till PAR is reached for Phase II. The Phase I may be done in procedure room or may call to secure a Phase I area. * If naloxone or flumazenil are used for reversal, hold in Phase I for continued monitoring from when last reversal dose was given for a minimum of 60 minutes or longer pending the nurse and/or physician discretion of patient condition before discharge to Phase II. Please call the Sedation Physician to re-evaluate and complete post-note for discharge to Phase II area. Do NOT discharge from procedure sedation or Phase 1 until post- sedation evaluation note is complete by procedure /sedation MD Sedation Discharge Instructions to be given to the patient at discharge to home.
--- NOTE | 2021-05-26 13:14 | Electrophysiology Report ---
Date of Service May 26, 2021 Electrophysiology Procedure Electrophysiology Procedure Report Procedure performed: Implantation of dual-chamber permanent pacemaker with left bundle pacing lead Staff history tutor: Atilio Ni MD Indication: The patient is a 65-year-old gentleman who presented with syncope and complete heart block. Dual-chamber pacemaker was selected for symptomatic nonreversible AV node dysfunction. 2 leads were selected as he is currently in sinus rhythm and wished to maintain AV synchrony. Procedure in detail: The patient was informed of the risks benefits and alternatives to the intended procedure and she wished to proceed. He was taken to the electrophysiology suite in a fasting state. A preoperative antibiotic had been administered. The patient was monitored electrocardiographically throughout today's procedure and conscious sedation was administered per protocol. The left upper pectoral area is prepped and draped in usual sterile fashion. This area was anesthetized using subcutaneous administration of a xylocaine solution. An incision was made at this site and carried down to the prepectoralis fascia using sharp dissection. Electrocautery was also employed for dissection as well as for hemostasis. A device pocket was fashioned tissues above the pectoralis muscle. Subsequent to this maneuver the left axillary vein was accessed using modified Seldinger technique. Sheaths were placed over guidewires at this site and used to facilitate passage of the pacing leads to the respective chambers under fluoroscopic guidance. The first lead was placed through a guiding catheter on the interventricular septum. Pacing was performed in order to identify the correct implant site. Adequate sensing and threshold parameters were obtained prior to active fixation of this lead to the interventricular septum. A right atrial lead was then advanced through the remaining access to the right atrium under fluoroscopic guidance. Adequate sensing and threshold parameters were obtained prior to active fixation of this lead to the endocardial surface. The proximal portion leads were then sutured the prepectoral fascia using nonabsorbable suture. The device pocket was irrigated with antibiotic solution. The leads were then attached to the device. The device and leads were then placed in the pocket and pocket was closed in 3 layers of absorbable suture. Steri-Strips and sterile dressing were applied. The device was tested noninvasively prior to conclusion the procedure. The patient tolerated procedure well there no immediate complications. Equipment used: New pulse generator: Compressor Station Operator [employer] Model number: [id number] serial number [id number] Right atrial lead: Compressor Station Operator [employer]. Model number: [id number] serial number [id number] Right ventricular lead: Compressor Station Operator [employer] Model number: 3830 serial number [id number] Measured data: Right atrial lead: P waves measured 1.6 mV. Pacing threshold 1.75 V at 0.4 ms with a paced impedance of 551 ohms Right ventricular lead: R waves measured 20 mV. Pacing threshold 0.75 V at 0.4 ms with a pacing impedance of 741 ohms Impression: Successful implantation of dual-chamber permanent pacemaker with left bundle pacing lead [facility] Electrophysiology codes Pacing Procedure 1: Pacin Insert/Replace Pacer A & V Miscellaneous Procedures Procedure 1: EP Miscellaneous: 07546-66 Vengraphy, extremity PG Moderate Sedation Codes Moderate Sedation Codes Procedure 1: Sedation/Anesthesia: 09247 Mod Sedation by the same physician;Init15 Min Child Age 5 & Up Procedure 2: Sedation/Anesthesia: 32124 Mod Sedation by the same physician; Ea [id number] Minutes
[2021-05-26] MEDS: METOPROLOL TARTRATE 25 MG TAB PO SCH ×2 (14:21→20:15)
[2021-05-26] MEDS ORDERED: lisinopril 20 MG TAB PO STA (15:33)
[2021-05-26] MEDS ORDERED: METOPROLOL TARTRATE 25 MG TAB PO PRN (18:01)
[2021-05-26] MEDS: amLODIPine BESYLATE 5 MG TAB PO SCH (20:15)
[2021-05-26] MEDS: ceFAZolin 1000MG 1,000 MG/7.5 ML SYR IV SCH (20:20)
[2021-05-27] MEDS: ceFAZolin 1000MG 1,000 MG/7.5 ML SYR IV SCH (04:20)
[2021-05-27] MEDS ORDERED: hydroCHLOROthiazide 25 MG TAB PO STA (08:25)
[2021-05-27] MEDS: lisinopril 40 MG TAB PO SCH (08:31)
[2021-05-27] MEDS: METOPROLOL TARTRATE 25 MG TAB PO SCH (08:31)
--- NOTE | 2021-05-27 08:47 | XRay Report ---
XR chest 2V PA/lateral CLINICAL HISTORY: EXACT TIME ORDERED Evaluate for pneumothorax and l TECHNIQUE: AP and lateral radiographs of the chest was obtained. Comparison: Comparison is made to chest one view 05/23/2021 FINDINGS: Exam is limited by patient positioning on the lateral radiograph. Dual lead pacemaker is seen. The ao rta is tortuous. The remainder of the cardiomediastinal silhouette is unremarkable. The lungs are santino ar. No evidence of pleural effusion or pneumothorax. IMPRESSION: Interval placement of dual-lead pacemaker without evidence of pneumothorax. ACT 112: Negative or not required by law. Electronically signed by: Rogelio Bell M.D. 05/27/2021 8:46 AM
[2021-05-27 08:50] LABS: Basophils # (auto) 0.03 K/uL (0-0.2); Basophils % (auto) 0.3 %; Eosinophils # (auto) 0.23 K/uL (0-0.5); Eosinophils % (auto) 2.2 %; Hematocrit (blood only) 48.7 % (42-52); Hemoglobin 18.2 g/dL (14.0-18.0); Immature Granulocytes # (auto) 0.02 K/uL (0.00-0.02); Immature Granulocytes % (auto) 0.2 %; Lymphocytes # (auto) 2.47 K/uL (1.2-3.4); Mean Corpuscular Hemoglobin 30.8 pg (25-34); Mean Corpuscular Hgb Conc 37.4 g/dL (32-36); Mean Corpuscular Volume 82.4 fL (80-100); Mean Platelet Volume 10.3 fL (7.4-10.4); Monocytes # (auto) 0.76 K/uL (0.11-0.59); Monocytes % (auto) 7.4 %; Neutrophils # (auto) 6.79 K/uL (1.4-6.5); Neutrophils % (auto) 65.9 %; Platelet Count 233 K/uL (130-400); RDW Coefficient of Variation 12.8 % (11.5-14.5); RDW Standard Deviation 38.3 fL (36.4-46.3); Red Blood Count 5.91 M/uL (4.7-6.1)
[2021-05-27 09:19] LABS: BUN Creatinine Ratio 14.8 (10-20); Calcium 9.3 mg/dl (8.5-10.1); Creatinine Clr Calc Pharmacy 98.3 ml/min; Est GFR (African American) 104.5 ml/min; Est GFR (Non-African American) 90.1 ml/min; Potassium 3.4 mmol/L (3.5-5.1)
--- NOTE | 2021-05-27 09:47 | Cardiology Progress Note ---
Date of Service May 27, 2021 Assessment & Plan (1) Second-degree heart block: (2) Bradycardia: (3) Dizziness: (4) Syncope: Plan: 1. High-degree AV block: Successful implantation of dual-chamber permanent pacemaker with left bundle pacing lead. No complication. Patient would be safe for discharge today from our standpoint. He should keep the wound dry in the Steri-Strips intact until follow-up in our clinic next week (I will arrange) He should avoid raising the left arm above the shoulder behind the neck for 6 weeks Admission and Anticipated Discharge Date Admission Date: May 23, 2021 Subjective This morning the patient was feeling well. Minimal discomfort at the device implant site. Review of Systems Review of Systems: Per HPI Physical Exam Physical Exam: Evaluation of the device implant site reveals very mild ecchymosis. No drainage or erythema. No hematoma. Results & Data ([facility]) Vital Signs (Past 12 Hours) Vital Signs Temp Pulse Pulse Resp BP BP Pulse Ox 05/27/21 08:14 36.7 C 76 16 169/104 H 94 05/27/21 07:18 77 05/27/21 05:43 174/102 H 05/27/21 04:35 172/101 H 05/27/21 04:16 36.8 C 62 18 178/110 H 95 05/26/21 23:24 37.3 C 69 18 153/93 H 95 05/26/21 23:21 73 Laboratory Results Abnormal Lab Results 05/27/21 05/27/21 08:31 08:31 WBC 10.30 RBC 5.91 Hgb 18.2 H Hct 48.7 MCV 82.4 MCH 30.8 MCHC 37.4 H RDW Std Deviation 38.3 RDW Coeff of Alfredo 12.8 Plt Count 233 MPV 10.3 Immature Gran % (Auto) 0.2 Neut % (Auto) 65.9 Lymph % (Auto) 24.0 Smith % (Auto) 7.4 Eos % (Auto) 2.2 Baso % (Auto) 0.3 Neut # (Auto) 6.79 H Lymph # (Auto) 2.47 Smith # (Auto) 0.76 H Eos # (Auto) 0.23 Baso # (Auto) 0.03 Immature Gran # (Auto) 0.02 Sodium 137 Potassium 3.4 L Chloride 103 Carbon Dioxide 26 Anion Gap 8 BUN 13 Creatinine 0.88 Est Cr Clr Drug Dosing 98.3 Est GFR ( Amer) 104.5 Est GFR (Non-Af Amer) 90.1 BUN/Creatinine Ratio 14.8 Glucose 205 H Calcium 9.3 Diagnostic Findings Chest x-ray revealed good lead placement without evidence of pneumothorax Device interrogation revealed good sensing threshold parameters on both atrial and ventricular leads. Normal device function.
--- NOTE | 2021-05-27 12:35 | Discharge Summary ---
Date of Service May 27, 2021 Admission HPI Per Admitting Provider 65yo M w/ hx of HTN who presents with an episode of syncope, bradycardia, and ongoing dizziness and vertigo. He reports that on 05/11, he was walking uphill with his when he passed out. He had enough time to say "Whoa, whoa, whoa" and reach out to his before losing consciousness. He awoke after about 15 seconds and had no post- syncope confusion. He reports some chest pressure at the time of this event, but it resolved quickly. He reports no other associated symptoms that he can recall: no palpitations, no shortness of breath, no nausea or vomiting. He felt well and actually walked home with his after that. He madhu to his PCP, and they ordered an echo and Holter monitor, but neither has arrived or been done yet. Around 05/19, he reports increasing dizziness and just feeling unwell. During these times of dizziness, he has also felt some chest pressure ("like a book on his chest") which resolves when the dizziness goes away. He has been checking his blood pressure, and the BP cuff noted high blood pressure (160/100), but a HR in the 40s. Other checks, he has found his HR in the 60s. This morning at around 3:00am, he had an episode of vertigo. He describes it as a clear vertiginous symptom with the room spinning. He notes that it was worse when he looked to the left. However, that sensation has passed, and at the time of admission, has no further symptoms at all. He notes some mild nasal congestion. Denies fever/chills/sweats, denies nausea or vomiting, denies loss of appetite, denies changes in urination or defecation. Principal Diagnosis Second-degree heart block Discharge Exam General: A&Ox3. NAD. Cooperative. HEENT: Atraumatic, normocephalic. Vision and hearing grossly intact. Postsurgical dressing present on left upper thorax at site of pacer placement. C/D/I. Pulm: CTAB A&P. -wheezes, -rales, -rhonchi. Symmetrical chest rise. No increase in work of breathing. No respiratory distress. Cardiac: RRR, -mrg. Radial pulses intact and symmetrical. Abdominal: Nontender, nondistended, soft. BS present. Extremities: Warm, dry. Sensation intact in hands and feet to soft touch without asymmetry. Ambulates in the room independently without difficulty Discharge Data Allergies Allergy/AdvReac Type Severity Reaction Status Date / Time No Known Drug Allergies Allergy Verified 05/23/21 11:33 Consultations 05/23/21 12:45 ED Decision to Admit Stat 05/24/21 02:46 Consult Cardiology Routine Procedures Performed Operation Date: 05/26/21 12:00 Actual Procedures p Pacer with A/V Leads (Dual) - Atilio Ni MD s Venogram, Unilateral - Atilio Ni MD Ordered Studies 05/23/21 11:29 CT head/brain wo con Stat 05/26/21 07:00 EP Lab Images for PACS ONCE Hospital Course (1) Second-degree heart block: Joel is a 65-year-old male who presented with lightheadedness/dizziness and bradycardia and who was found to have intermittent second-degree heart block Mobitz 2. Underwent dual chamber pacer placement w/ L bundle lead 05/27 and did not have additional symptoms while pending pacer placement or following placement. Was hypertensive over admission, and due to persistent hypertension did have hydrochlorothiazide added to his antihypertensive regimen with close blood pressure checks at home and follow-up to PCP. Metoprolol was initially held for bradycardia and symptomatic heart block, this was resumed following pacer placement. To do as outpatient: 1. Continue hydrochlorothiazide 25 mg daily. Recheck BMP in 1-2 weeks for potassium stability 2. Home blood pressure checks 3. Routine follow-up to PCP within 1-2 weeks 4. Follow-up to cardiology, routine follow-up pacer placement Second-degree heart block with normal MD observed on telemetry Cardiology consulted, syncope and symptoms are likely related to intermittent heart block with evidence of Mobitz 2 and pauses on monitor Patient has been recommended for permanent pacemaker Anticipate pacer placement on Wednesday Pacer pads to bedside, continue to monitor on telemetry. No additional vestibular work-up indicated at this time. Metoprolol was held for bradycardia/heart block pending placement, this was resumed following pacer placement Status post dual-chamber permanent pacemaker with left bundle pacing lead 05/27/2021 Patient's antihypertensives including amlodipine, lisinopril, metoprolol were resumed but patient with persistent hypertension greater than 170/100. He was treated with 25 mg of chlorothiazide with improvement in his blood pressure to 150s/90 on later reassessment rated discharge. Symptoms of hypotension should his blood pressure drop when he gets home were discussed, patient will follow up if any symptoms develop and have routine with follow-up with PCP as above (2) Dizziness: Initial Ddx includes medication-induced bradycardia, sinus bradycardia (which we will determine by holding his beta-dionna), atypical anginal pain, BPPV or other labyrinth disease, or vestibular stroke. BBlocker held on admission Due to secondary heart block as above No symptoms following pacer placement (3) Bradycardia: HR as low as 40s over last few days. - As above (4) Essential hypertension: - as above (5) Hyperlipidemia: Not on meds. - PCP f/u (6) History of B-cell lymphoma: In 2009. In remission. (7) DVT prophylaxis: SCDs were used during admission, patient was able to ambulate shortly after procedure no signs of DVT during Total Time Total Time Spent Total Time Spent (In Minutes): Time spend day of discharge 40 minutes including direct patient care, documentation, review of labs and images, and coordination of care. Discharge Plan Discharge Items Patient Disposition: Home - Self-Care Reason For Visit: BRADYCARDIA, DIZZINESS & SYNCOPE Discharge Diagnosis: Second-degree heart block, dizziness Activity: Resume your previous activity Non-emergency contact: Primary Care Provider and Body Masker Call non-emergency contact if: you have any medication questions, your symptoms worsen, your pain is not controlled and your pain is worsening Follow-up/Referrals: Xiang Rao MD [Primary Care Provider] - Atilio Ni MD [Physician] - Diet: Heart Healthy Addtl Attending Provider Instructions: You are seen in the hospital for lightheadedness/dizziness and concerns of a slow heart rate. You are found to have an electrical heart block, a condition that can cause missed heartbeats due to no electrical conduction problem. You have had a cardiac pacemaker placed which typically resolves symptoms. You were also noted to have had high blood pressure which persisted after pacer placement. Your blood pressure did not improve with home medication resumption and conservative care, it did improve with the addition of a medication called hydrochlorothiazide. You have been started on a blood pressure medicine, called hydrochlorothiazide. Please take hydrochlorothiazide 25 mg by mouth daily in the morning. If you notice your blood pressure is low, or you have lightheadedness/dizziness, please stop taking this medication and contact your PCP for additional recommendations. This medication can affect potassium levels, you should have a recheck blood work (BMP) performed in approximately 1 week by your primary care provider. Your metoprolol was previously held as this can lower heart rate and cause the symptoms you experienced. Now that you are pacer is in place, your pacer will keep your heart rate from going less than 60 and metoprolol is a reasonable medication to use for blood pressure control. You may resume your metoprolol as noted below. A follow-up appointment is being scheduled for you with Dr. Rao. You should be seen within 2 weeks. If you not receive a call within 48 hours to confirm your appointment, please call his office at the number above. A follow-up appointment is being scheduled for you with cardiology, as above. If you do not receive a call to confirm your appointment, please call their office at the number above. If you develop any new or worsening symptoms including fever, chills, sweats, chest pain, chest pressure, difficulty breathing, uncontrolled nausea/vomiting, rash, wheezing, passing out or nearly passing out, bleeding, black/bloody bowel movements, or other new or concerning symptoms please call your primary care physician, or call 911 for re-evaluation in the emergency department if you are very concerned. Pending Studies at Discharge: No Stand-Alone Forms: [employer], Smoking Cessation Medications and DC Order Prescriptions: New hydrochlorothiazide 25 mg tablet 25 mg PO DAILY Qty: 30 RF: 0 Continued amlodipine 10 mg tablet 10 mg PO HS Qty: 30 RF: 2 cholecalciferol (vitamin D3) [Vitamin D3] 50 mcg (2,000 unit) Capsule 100 mcg PO QAM RF: 0 metoprolol succinate 100 mg tablet extended release 24 hr 50 mg PO HS RF: 0 lisinopril 40 mg tablet 40 mg PO QAM RF: 0 Discharge Orders: Discharge Order (Routine); Ordered 05/27/21 Ordered By: Etienne Gee Admission Data Admit Date/Time: 05/23/21 13:18 Attending Provider: Etienne Gee Admit Provider: Jamaal Moise Primary Care Provider: Xiang Rao Other Providers: Jamaal Moise ; Chandrakant Wharton ; Urbano Britton ; Xiang Hoffmann ; Robert Montgomery ; Jaron Patel ; Emerson Schneider Jr ; Donell Arevalo ; Virginia Burroughs ; Luisa Marie ; Ze Senior ; Atilio Ni ; Antonio Vaughn ; Karime Shoemaker ; Henna Elder ; Gui Escobedo ; Peña Trinh Michael K. ; Bill Early Other Interventions: Discharge Summary Assessment (RN) Last Done: 05/27/21 11:49 Coding Level of Care Code D/C DAY MANAGEMENT >30 MINS Diagnoses Second-degree heart block I44.1 Dizziness R42 Bradycardia R00.1 Essential hypertension I10 Hyperlipidemia E78.5 History of B-cell lymphoma Z85.72 DVT prophylaxis Z29.9
== END 2021-05-27 13:58 | disposition home or self-care (01) | DRG 244 ==
LOC: ED 10:25 → 2N 13:18 → SUATTDRO 13:18 → 2N 15:55 → 2S 05-26 13:51